=== PATIENT | male | born 1990 | race Caucasian/White ===

== ENCOUNTER 2020-10-19 15:59 | Emergency (ER) | payer BC ==
[2020-10-19 16:07] VITALS: BP 132/77; PULSE 77; RESP 18; TEMP 98
[2020-10-19 17:27] LABS: Basophils # (A) 0.1 k/uL (0-0.2); Basophils % (A) 1 %; Eosinophils # (A) 0.4 k/uL (0-0.7); Eosinophils % (A) 5 %; HCT 42.6 % (39.0-53.0); HGB 14.4 gm/dL (13.0-17.5); Lymphocytes # (A) 2.8 k/uL (1.0-4.8); Lymphocytes % (A) 34 %; MCH 31.6 pg (25.0-35.0); MCHC 33.8 g/dL (31.0-37.0); MCV 93.5 fL (80.0-100.0); Mean Platelet Volume 8.8; Monocytes # (A) 0.5 k/uL (0-1.0); Monocytes % (A) 6 %; Neutrophils # (A) 4.4 k/uL (1.3-7.7); Neutrophils % (A) 54 %; Platelet Count 166 k/uL (150-450); RBC 4.55 m/uL (4.30-5.90); RDW 11.6 % (11.5-15.5); WBC 8.3 k/uL (3.8-10.6)
[2020-10-19 17:35] LABS: Partial Thromboplastin Time 23.6 sec (22.0-30.0); Prothrombin Time 10.4 sec (9.0-12.0)
[2020-10-19 17:36] LABS: ALT 14 U/L (4-49); AST 26 U/L (17-59); African American GFR (CKD) >90 (>60 ml/min/1.73 sqM); Albumin 4.2 g/dL (3.5-5.0); Alkaline Phosphatase 74 U/L (38-126); Anion Gap 4 mmol/L; Blood Urea Nitrogen 12 mg/dL (9-20); Calcium 9.3 mg/dL (8.4-10.2); Carbon Dioxide 31 mmol/L (22-30); Chloride 103 mmol/L (98-107); Glucose 109 mg/dL (74-99); Lipase 54 U/L (23-300); Magnesium 2.3 mg/dL (1.6-2.3); Non-African American GFR(CKD) >90 (>60 ml/min/1.73 sqM); Sodium 138 mmol/L (137-145); Total Bilirubin 0.8 mg/dL (0.2-1.3); Total Protein 6.5 g/dL (6.3-8.2)
[2020-10-19 17:46] LABS: Potassium 3.6 mmol/L (3.5-5.1)
--- NOTE | 2020-10-19 19:05 | CT ---
EXAMINATION TYPE: CT abdomen pelvis w con DATE OF EXAM: 10/19/2020 COMPARISON: None HISTORY: Abdominal pain and bright red rectal bleeding. CT DLP: 881.5 mGycm Automated exposure control for dose reduction was used. CONTRAST: Performed with IV Contrast, patient injected with 100ml mL of Isovue 300. Images obtained from the diaphragm to the floor the pelvis with IV contrast. Lung bases are clear. There is no pleural effusion. Heart size is normal. Liver spleen stomach pancre as gallbladder appear intact. The bile ducts are not dilated. There is no adrenal mass. Kidneys show satisfactory contrast opacification. There is no hydronephrosi s. Ureters are not dilated. Delayed images show normal renal excretion. There is no retroperitoneal a denopathy. Appendix is posterior and appears normal. Bladder distends smoothly. There is no inguinal hernia. There is no free fluid in the pelvis. There i s no pelvic mass. There is no mesenteric edema. There is no ascites or free air. There is no sign of a bowel obstructio n. Lumbar vertebra have normal alignment. Posterior elements are intact. There is no compression frac ture. Bony pelvis is intact. The hip joints are intact. There is no hip dysplasia. Is some high density material in the large bowel consistent with previous oral contrast. I see no int estinal wall thickening. IMPRESSION: Negative CT scan abdomen and pelvis. No sign of inflammatory bowel disease. Normal appendix.
--- NOTE | 2020-10-20 00:59 | ED ---
GI Bleed HPI - General Chief complaint: GI Bleed Stated complaint: abd pain Time Seen by Provider: 10/19/20 16:05 Source: patient Mode of arrival: ambulatory Limitations: physical limitation - History of Present Illness Initial comments: 30-year-old male with no past medical history who presents emergency Department with reported rectal bleeding and abdominal cramping. Patient states that he has had right lower quadrant abdominal pain for the past several months. It has been associated with occasional episodes of bright red blood per rectum. Chio ent had some bright red blood in his stool this morning. States he did not have to strain to have a bowel movement. Does not suffer from constipation. Denies any rectal pain. No history of inflammatory bowel disease in himself or family. He denies any fevers or chills. No nausea or vomiting. Denies any changes in his urination to include dysuria, hematuria or difficult voiding. No fevers or chills. No testicular pain, swelling or discharge. No other alleviating, precipitating or modifying factors - Related Data Home Medications Medication Instructions Recorded Confirmed ALPRAZolam [Xanax] 0.5 mg PO TID PRN 10/19/20 10/19/20 Omeprazole 20 mg PO DAILY 10/19/20 10/19/20 Allergies Allergy/AdvReac Type Severity Reaction Status Date / Time No Known Allergies Allergy Verified 10/19/20 18:34 Review of Systems ROS Statement: Those systems with pertinent positive or pertinent negative responses have been documented in the HPI. ROS Other: All systems not noted in ROS Statement are negative. Past Medical History Past Medical History: No Reported History History of Any Multi-Drug Resistant Organisms: None Reported Past Surgical History: Adenoidectomy Past Psychological History: No Psychological Hx Reported Smoking Status: Current every day smoker Past Alcohol Use History: Daily Past Drug Use History: Marijuana General Exam Limitations: no limitations General appearance: alert, in no apparent distress Head exam: Present: atraumatic, normocephalic, normal inspection Eye exam: Present: normal appearance, PERRL, EOMI. Absent: scleral icterus, conjunctival injection, periorbital swelling ENT exam: Present: normal exam, mucous membranes moist Neck exam: Present: normal inspection. Absent: tenderness, meningismus, lymphadenopathy Respiratory exam: Present: normal lung sounds bilaterally. Absent: respiratory distress, wheezes, rales, rhonchi, stridor Cardiovascular Exam: Present: regular rate, normal rhythm, normal heart sounds. Absent: systolic murmur, diastolic murmur, rubs, gallop, clicks GI/Abdominal exam: Present: soft, normal bowel sounds. Absent: distended, tenderness, guarding, rebound, rigid Rectal exam: Present: normal rectal tone, heme (-) stool, normal prostate. Absent: black stool, bloody stool, hemorrhoids, mass Extremities exam: Present: normal inspection, full ROM, normal capillary refill. Absent: tenderness, pedal edema, joint swelling, calf tenderness Back exam: Present: normal inspection Neurological exam: Present: alert, oriented X3, CN II-XII intact Psychiatric exam: Present: normal affect, normal mood Skin exam: Present: warm, dry, intact, normal color. Absent: rash Course Vital Signs 10/19/20 16:02 Temperature 98 F Pulse Rate 77 Respiratory 18 Rate Blood Pressure 132/77 O2 Sat by Pulse 99 Oximetry Medical Decision Making - Medical Decision Making Upon arrival patient was placed in room 27. A thorough history and physical exam was performed. Rectal exam was performed which demonstrates no gross blood. An occult is sent to the lab. Laboratory studies are conducted and reviewed. Hemoglobin stable at 14.4. Occult is negative. I did send the patient for a CT because of his reported right lower quadrant abdominal pain. Demonstrates no acute process. Patient has remained stable throughout his course in the emergency room. I did enter the room to discuss the results with the patient and find that the patient has eloped from the emergency department. We did call the patient he states he removed his IV himself. He states he has no plans of returning and could not wait any longer for his results. I instructed he should return to the hospital for proper disposition however he refused. He needs to see his PCP in 2-4 days for continued evaluation of his complaints. Return to the ED at any time for further treatment. - Lab Data Result diagrams: 10/19/20 17:10/19/20 17:08 Lab Results 10/19/20 10/19/20 10/19/20 Range/Units 17: 17:08 17:08 WBC 8.3 (3.8-10.6) k/uL RBC 4.55 (4.30-5.90) m/uL Hgb 14.4 (13.0-17.5) gm/dL Hct 42.6 (39.0-53.0) % MCV 93.5 (80.0-100.0) fL MCH 31.6 (25.0-35.0) pg MCHC 33.8 (31.0-37.0) g/dL RDW 11.6 (11.5-15.5) % Plt Count 166 (150-450) k/uL MPV 8.8 Neutrophils % 54 % Lymphocytes % 34 % Monocytes % 6 % Eosinophils % 5 % Basophils % 1 % Neutrophils # 4.4 (1.3-7.7) k/uL Lymphocytes # 2.8 (1.0-4.8) k/uL Monocytes # 0.5 (0-1.0) k/uL Eosinophils # 0.4 (0-0.7) k/uL Basophils # 0.1 (0-0.2) k/uL PT 10.4 (9.0-12.0) sec INR 1.0 (<1.2) APTT 23.6 (22.0-30.0) sec Sodium (137-145) mmol/L Potassium (3.5-5.1) mmol/L Chloride (98-107) mmol/L Carbon Dioxide (22-30) mmol/L Anion Gap mmol/L BUN (9-20) mg/dL Creatinine (0.66-1.25) mg/dL Est GFR (CKD-EPI)AfAm (>60 ml/min/1.73 sqM) Est GFR (CKD-EPI)NonAf (>60 ml/min/1.73 sqM) Glucose (74-99) mg/dL Plasma Lactic Acid Tj (0.7-2.0) mmol/L Calcium (8.4-10.2) mg/dL Magnesium (1.6-2.3) mg/dL Total Bilirubin (0.2-1.3) mg/dL AST (17-59) U/L ALT (4-49) U/L Alkaline Phosphatase (38-126) U/L Troponin I (0.000-0.034) ng/mL Total Protein (6.3-8.2) g/dL Albumin (3.5-5.0) g/dL Lipase (23-300) U/L Stool Occult Blood Negative (Negative) 10/19/20 10/19/2010/19/21 Range/Units 17:08 17:08 17:08 WBC (3.8-10.6) k/uL RBC (4.30-5.90) m/uL Hgb (13.0-17.5) gm/dL Hct (39.0-53.0) % MCV (80.0-100.0) fL MCH (25.0-35.0) pg MCHC (31.0-37.0) g/dL RDW (11.5-15.5) % Plt Count (150-450) k/uL MPV Neutrophils % % Lymphocytes % % Monocytes % % Eosinophils % % Basophils % % Neutrophils # (1.3-7.7) k/uL Lymphocytes # (1.0-4.8) k/uL Monocytes # (0-1.0) k/uL Eosinophils # (0-0.7) k/uL Basophils # (0-0.2) k/uL PT (9.0-12.0) sec INR (<1.2) APTT (22.0-30.0) sec Sodium 138 (137-145) mmol/L Potassium 3.6 (3.5-5.1) mmol/L Chloride 103 (98-107) mmol/L Carbon Dioxide 31 H (22-30) mmol/L Anion Gap 4 mmol/L BUN 12 (9-20) mg/dL Creatinine 0.86 (0.66-1.25) mg/dL Est GFR (CKD-EPI)AfAm >90 (>60 ml/min/1.73 sqM) Est GFR (CKD-EPI)NonAf >90 (>60 ml/min/1.73 sqM) Glucose 109 H (74-99) mg/dL Plasma Lactic Acid Tj <0.5 L (0.7-2.0) mmol/L Calcium 9.3 (8.4-10.2) mg/dL Magnesium 2.3 (1.6-2.3) mg/dL Total Bilirubin 0.8 (0.2-1.3) mg/dL AST 26 (17-59) U/L ALT 14 (4-49) U/L Alkaline Phosphatase 74 (38-126) U/L Troponin I <0.012 (0.000-0.034) ng/mL Total Protein 6.5 (6.3-8.2) g/dL Albumin 4.2 (3.5-5.0) g/dL Lipase 54 (23-300) U/L Stool Occult Blood (Negative) Disposition Clinical Impression: Hematochezia, Abdominal pain Disposition: Left W/O Being Seen by Phys Condition: Stable Is patient prescribed a controlled substance at d/c from ED?: No Referrals: Myles Willis DO [Primary Care Provider] - 1-2 days
== END 2020-10-19 19:53 | disposition left against medical advice (07) ==
LOC: EC 15:59
DX: K92.1 Melena (principal); R10.31 Right lower quadrant pain; F17.200 Nicotine dependence, unspecified, uncomplicated; F12.90 Cannabis use, unspecified, uncomplicated
CPT/HCPCS: 36415; 80053; 83605; 83690; 83735; 84484; 85025; 85610; 85730; 82272; 74177; 99284; Q9967